=== PATIENT | female | born 1975 | race Two or more races ===

== ENCOUNTER 2022-11-02 09:38 | Day surgery (SDC) | payer OTHER ==
[~2022-11-02] VITALS: Ht 157.5 cm; Wt 96.2 kg
[2022-11-02] MEDS ORDERED: fentaNYL citrate 0.05 MG/ML VIAL ONE (11:04)
[2022-11-02] MEDS ORDERED: LIDOCAINE 2% 100 MG/5 ML UJET TP ONE (11:04)
[2022-11-02] MEDS ORDERED: fentaNYL citrate 0.05 MG/ML VIAL IVP ONE (12:10)
== END 2022-11-02 12:40 | disposition home or self-care (01) ==
LOC: MDS 09:38 → MMU 09:48 → MDS 12:40
PROVIDERS: ATTEND Internal Medicine Gastroenterology
DX: Z12.11 Encounter for screening for malignant neoplasm of colon (principal); K57.30 Diverticulosis of large intestine without perforation or abscess without bleeding; Z90.49 Acquired absence of other specified parts of digestive tract
CPT/HCPCS: 45378; J3010